=== PATIENT | male | born 2000 | race Caucasian/White ===

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

== ENCOUNTER 2020-06-22 01:11 | Emergency (ER) | payer MEDICAID, SELFPAY ==
[2020-06-22 01:12] VITALS: BP 125/78; PULSE 117; RESP 16; TEMP 36.9; O2SAT 98; BMI 19.5
--- NOTE | 2020-06-22 01:26 | RAD_ITS ---
STUDY: X-RAY CHEST REASON FOR EXAM: Male, 20 years old. Productive cough. TECHNIQUE: Single AP portable view of the chest. COMPARISON: CT scan chest 02/11/2016. FINDINGS: There are no confluent pulmonary infiltrates. There is no demonstrated pleural abnormality. Normal size heart. Normal mediastinum and alyce. Normal visualized aortic arch and descending thoracic aorta. There are no demonstrated acute fractures or destructive bone lesions. There is no demonstrated abnormality of the visualized soft tissue structures of the upper abdomen. RAD/Chest 1 View (Portable) IMPRESSION: Normal x-ray examination of the chest. Electronically Signed: Roman Marshall MD at 2:36 EDT , Service support ,
[2020-06-22 01:57] VITALS: O2SAT 98
--- NOTE | 2020-06-22 01:58 | ED.DCSUM_ITS ---
- ER Visit Summary Date of Service: 06/22/20 Chief Complaint: Cough History of Present Illness: The patient is a 20 M with no primary care physician. He reports he has a cough that began yesterday. Is productive of clear sputum with green at times. He denies any blood in his sputum. He denies any fever or chills. Does report he has nasal congestion. He denies any chest pain or shortness of breath. Patient has no known exposure to COVID. He does have sick contacts as his girlfriend had a sore throat and cough. However she had a negative cover test. He had a couple test approximately 1 week ago that was negative. He has been wearing a mask. He reports he is had similar symptoms with allergies. However, he is taking his Zyrtec without relief. Physical Examination: Vitals: Stable. Afebrile. General: Well-nourished and well-developed. Head: Normocephalic atraumatic. Neck: Supple, no lymphadenopathy. No JVD. Nontender. Cardiovascular: Regular rate and rhythm. No murmurs. Respiratory: No respiratory distress. Clear to auscultation bilaterally. Abdominal: Soft, nontender, nondistended, normal bowel sounds. No guarding, rebound, or peritoneal signs. Back: Nontender. Extremities: Nontender, no edema. Skin: Normal color, no rash. Neurologic: Alert and oriented ?3. Cranial nerves II through XII are intact. Normal strength and sensation. Psych: Normal affect. Test Results: Chest x-ray shows no acute disease. Emergency Department Course and Treatment: Patient is resting comfortably. He refused the COVID-19 test. Treatment Plan: Had prolonged discussion the patient at this time I would continue the cetirizine. He is instructed to use Sudafed during the day and Benadryl at night to help with his congestion. He does understand that this could potentially be COVID-19 and he needs to quarantine until he feels better. He is instructed to follow-up with Dr. Juan Yoder in 10 to 14 days if not improving. Return to the emergency department for any worsening symptoms. Disposition: To home in improved and stable condition. Impression: 1. URI, possible COVID-19 infection. This note was generated with [employer] software. It may contain incorrect words, spelling, and punctuation that were not noted in review of the chart prior to signing ED Disposition - Plan for ED Patient: Instructions: ED Upper Resp Infec No Abx Tx Referrals: Juan Yoder III, MD [STAFF PHYSICIAN] - 10-14 Days if not better
[2020-06-22 02:07] VITALS: BP 128/88; PULSE 91; RESP 15; O2SAT 97
== END 2020-06-22 02:07 | disposition home or self-care (01) ==
LOC: ED 01:43
PROVIDERS: Emergency Provider Emergency Medicine
DX: J06.9 Acute upper respiratory infection, unspecified (principal); Z20.828 Contact with and (suspected) exposure to other viral communicable diseases
CPT/HCPCS: 71045; 99283

== ENCOUNTER 2020-07-05 16:27 | Emergency (ER) | payer MEDICAID, SELFPAY ==
[2020-07-05 16:28] VITALS: BP 118/82; PULSE 89; RESP 16; TEMP 36.6; O2SAT 99; BMI 20.7
--- NOTE | 2020-07-05 16:37 | ED.VIS.GEN ---
History of Present Illness Chief Complaint: Sore Throat Informant: Patient Onset: Yesterday Context: Gradual Onset Timing: Continuous Current Severity: Moderate Maximum Severity: Moderate Narrative: Patient is a 20-year-old male was otherwise healthy the presents to the emergency department sore throat. Patient states his symptoms began yesterday. He states he had a mild tightness in his throat. He states it felt like there was something swollen. States today, he had persistent symptoms. He is still able to eat and drink. He denies any change in voice. He denies any trouble laying flat. Patient was Covid negative recently. Prior similar symptoms: No Recent Illness/Hospitalization: No Past Medical History - Allergies and Home Meds Allergies/Adverse Reactions: Allergies yeast, dried Adverse Reaction (Verified 07/05/20 16:33) Hives SALMON Adverse Reaction (Uncoded 07/05/20 16:33) Hives Primary Care Physician: Care Physician,No Primary [Primary Care Provider] - Prior records reviewed: Yes Past Medical History: None Surgical History: no surgical history Smoking Status: Never smoker Review of Systems General: Denies: Chills, Fever, Sweats Eyes: Denies: Visual changes - bilaterally, Diplopia ENT: Reports: Sore throat. Denies: Rhinorrhea Cardiovascular: Denies: Chest pain, Palpitations Respiratory: Denies: Dyspnea, Cough, Dyspnea on exertion Gastrointestinal: Denies: Abdominal pain, Nausea, Vomiting, Diarrhea, Melena, Hematochezia Genitourinary: Denies: Dysuria, Hematuria, Frequency Musculoskeletal: Denies: Back pain, Extremity Pain Skin: Denies: Rash, Wounds Neurological: Denies: Headache, Weakness, Numbness Physical Exam Vital Signs/Narrative: Vital Signs Temp Pulse Resp BP Pulse Ox 07/05/20 16:28 97.9 F 89 16 118/82 H 99 Inital Vital Signs reviewed: Yes General: Well nourished, Well developed, No Acute Distress Head: Normocephalic, Atraumatic Eyes: Perrl, EOMI ENT: Moist mucous membranes, No rhinorrhea, - - Posterior oropharynx is widely patent. There is evidence of uvulitis. There is no exudate. There is no trismus or stridor. There is no evidence of retropharyngeal or peritonsillar abscess. Neck: Supple, Nontender Cardiovascular: Regular rate, Regular rhythm, No murmurs Respiratory: No distress, CTA bilaterally, Chest nontender Abdomen: Soft, Nontender, Nondistended, Normal bowel sounds Back: Nontender, Normal Inspection Extremities: Nontender, No edema Skin: Normal color, No rash Neurological: Alert, Oriented x3, Cranial nerves II-XII grossly intact, Normal Strength, Normal Sensation Psychological: Normal affect, Normal Mood Diagnostic/Tx/Re-eval - Medical Decision Making The patient presents with sore throat. He does have evidence of uvulitis. There is no exudate or evidence of abscess. I am going to treat the patient with Decadron and amoxicillin. He is comfortable with this plan of care and we discharged home. Impression 1. Uvulitis ED Disposition - Plan for ED Patient: Instructions: ED Pharyngitis Report Pending Prescriptions: Amoxicillin 500 mg PO TID #21 tab Prescription Printed Dexamethasone [Decadron] 4 mg PO BIDCM #6 tab Prescription Printed Referrals: Care Physician,No Primary [Primary Care Provider] -
[2020-07-05] MEDS: dexAMETHasone 10 MG/ML Vial PO.IVFORM (16:42)
== END 2020-07-05 16:52 | disposition home or self-care (01) ==
LOC: ED 16:49
PROVIDERS: Emergency Provider Emergency Medicine
DX: K12.2 Cellulitis and abscess of mouth (principal)
CPT/HCPCS: 99281

== ENCOUNTER 2020-07-07 17:12 | Emergency (ER) | payer MEDICAID, SELFPAY ==
[2020-07-07 17:12] VITALS: BP 110/68; PULSE 86; RESP 18; TEMP 36.3; O2SAT 100; BMI 22.7
--- NOTE | 2020-07-07 18:36 | ED.DCSUM_ITS ---
History of Present Illness Chief Complaint: Sore Throat Detail of Chief Complaint: throat tightness Informant: Patient Onset: Days - 1-2 Context: Gradual Onset Timing: Continuous Quality: tightness Location: throat Current Severity: Moderate Maximum Severity: Moderate Worsened by: nothing Relieved by: nothing Associated Symptoms: soreness and swelling in back of throat are better c/w 2d ago Narrative: Patient was seen here 2 days ago and diagnosed with uvulitis, treated with Decadron and amoxicillin. He states the symptoms that he had been, which were swelling and soreness in the back of his throat are better, but now he feels some tightness lower down like it is hard to take a breath but he does not necessarily feel dyspneic. Denies any cough, fevers, chills, or any other new symptoms. He is swallowing liquids and solids without any difficulty. He denies any noisy breathing. He denies any swelling that he can tell objectively in his extremities or anywhere else. He states that he thinks this is all his anxiety but he wants to make sure that there is nothing else wrong. - Past Medical History (1) Anxiety Status: Chronic Past Medical History - Allergies and Home Meds Allergies/Adverse Reactions: Allergies yeast, dried Adverse Reaction (Verified 07/05/20 16:33) Hives SALMON Adverse Reaction (Uncoded 07/05/20 16:33) Hives Primary Care Physician: Care Physician,No Primary [Primary Care Provider] - Surgical History: no surgical history Smoking Status: Never smoker Review of Systems General: Denies: Chills, Fever, Sweats Eyes: Denies: Visual changes - bilaterally, Diplopia ENT: Reports: - - Throat tightening. See HPI.. Denies: Rhinorrhea, Sore throat Cardiovascular: Denies: Chest pain, Palpitations Respiratory: Denies: Dyspnea, Cough, Dyspnea on exertion Gastrointestinal: Denies: Abdominal pain, Nausea, Vomiting, Diarrhea, Melena, Hematochezia Genitourinary: Denies: Dysuria, Hematuria, Frequency Musculoskeletal: Denies: Back pain, Extremity Pain Skin: Denies: Rash, Wounds Neurological: Denies: Headache, Weakness, Numbness Psych: Reports: Anxiety. Denies: Suicidal thoughts Physical Exam Vital Signs/Narrative: Vital Signs Temp Pulse Resp BP Pulse Ox 07/07/20 17:12 97.3 F L 86 18 110/68 100 Inital Vital Signs reviewed: Yes General: Well nourished, Well developed, No Acute Distress - Well-appearing, conversive in full sentences without difficulty or stridor. Head: Normocephalic, Atraumatic Eyes: Perrl, EOMI ENT: Moist mucous membranes, No rhinorrhea, - - Posterior oropharynx normal exc ept for mildly swollen short uvula. No trismus. No stridor. No tonsillar asymmetry or edema or exudates, airway widely patent. Neck: Supple, Nontender, No lymphadenopathy Respiratory: No distress, CTA bilaterally, Chest nontender Extremities: Nontender, No edema Skin: Normal color, No rash, No Trauma Neurological: Alert, Oriented x3, Cranial nerves II-XII grossly intact, Normal Strength, Normal Sensation, Normal Gait Psychological: Normal affect, Normal Mood Diagnostic/Tx/Re-eval - Medical Decision Making Patient reassured that his exam is normal. He is passing air without any difficulty. He is advised that if he starts having trouble passing solids or liquids, and if symptoms worsen he should come back, but he was already treated with Decadron which may be worsening his anxiety and causing the symptoms. He feels better and is reassured, we discussed these reasons to return. ED Disposition - Plan for ED Patient: Disposition: Home or Assisted Living Diagnosis: Uvulitis, Anxiety Instructions: ED Uvulitis Referrals: Doctor,Your [STAFF PHYSICIAN] - As Needed
[2020-07-07 18:50] VITALS: RESP 17
== END 2020-07-07 18:51 | disposition home or self-care (01) ==
PROVIDERS: Emergency Provider Emergency Medicine
DX: K12.2 Cellulitis and abscess of mouth (principal); F41.9 Anxiety disorder, unspecified
CPT/HCPCS: 99281

== ENCOUNTER 2020-07-18 01:17 | Emergency (ER) | payer MEDICAID, SELFPAY ==
[2020-07-18 01:18] VITALS: BP 133/80; PULSE 100; RESP 18; TEMP 36.3; O2SAT 99; BMI 19.4
--- NOTE | 2020-07-18 01:24 | ED.VIS.GEN ---
History of Present Illness Chief Complaint: Anxiety Informant: Patient Onset: Today Context: Sudden Onset Timing: Continuous Current Severity: Mild Maximum Severity: Moderate Narrative: Patient is a 20-year-old male who presents to the emergency department complaining of anxiety. Patient states he ate. He began to feel like his throat was closing. He had some abdominal cramping and felt like he had to have diarrhea. He states he had similar symptoms before with anxiety. He states he is felt mildly improved. He denies being suicidal or homicidal. He denies any drug use. He states he just felt uncomfortable and wanted to make sure I was safe. Prior similar symptoms: Yes Recent Illness/Hospitalization: No Past Medical History - Allergies and Home Meds Allergies/Adverse Reactions: Allergies yeast, dried Adverse Reaction (Verified 07/18/20 01:24) Hives SALMON Adverse Reaction (Uncoded 07/18/20 01:24) Hives [facility] - Prior records reviewed: Yes Past Medical History: - - Anxiety Surgical History: no surgical history Smoking Status: Never smoker Review of Systems General: Denies: Chills, Fever, Sweats Eyes: Denies: Visual changes - bilaterally, Diplopia ENT: Denies: Rhinorrhea, Sore throat Cardiovascular: Denies: Chest pain, Palpitations Respiratory: Denies: Dyspnea, Cough, Dyspnea on exertion Gastrointestinal: Denies: Abdominal pain, Nausea, Vomiting, Diarrhea, Melena, Hematochezia Genitourinary: Denies: Dysuria, Hematuria, Frequency Musculoskeletal: Denies: Back pain, Extremity Pain Skin: Denies: Rash, Wounds Neurological: Denies: Headache, Weakness, Numbness Psych: Reports: Anxiety Physical Exam Vital Signs/Narrative: Vital Signs Temp Pulse Resp BP Pulse Ox 07/18/20 01:18 97.4 F L 100 18 133/80 H 99 Inital Vital Signs reviewed: Yes General: Well nourished, Well developed, No Acute Distress Head: Normocephalic, Atraumatic Eyes: Perrl, EOMI ENT: Moist mucous membranes, No rhinorrhea Neck: Supple, Nontender Cardiovascular: Regular rate, Regular rhythm, No murmurs Respiratory: No distress, CTA bilaterally, Chest nontender Abdomen: Soft, Nontender, Nondistended, Normal bowel sounds Back: Nontender, Normal Inspection Extremities: Nontender, No edema Skin: Normal color, No rash Neurological: Alert, Oriented x3, Cranial nerves II-XII grossly intact, Normal Strength, Normal Sensation Psychological: Normal affect, Normal Mood Diagnostic/Tx/Re-eval - Medical Decision Making Clinically, the patient appears well. His oropharynx is widely patent. His abdomen is soft and nontender. He does appear to be anxious, but in no distress. I did discuss options with the patient. He states he was comfortable taking something for anxiety. He was ordered 1 mg of Ativan. He is interested in getting follow-up as his anxiety bouts have been more frequent. The patient will be referred to the counseling center. He will be discharged home. Impression 1. Acute stress reaction ED Disposition - Plan for ED Patient: Instructions: ED Stress React Referrals: Counseling,Center [GROUP OF PHYSICIANS] -
[2020-07-18] MEDS: LORazepam 1 MG Tablet PO (01:29)
== END 2020-07-18 01:41 | disposition home or self-care (01) ==
LOC: ED 01:37
PROVIDERS: Emergency Provider Emergency Medicine
DX: F43.0 Acute stress reaction (principal)
CPT/HCPCS: 99283

== ENCOUNTER 2020-08-07 16:15 | Emergency (ER) | payer MEDICAID, SELFPAY ==
[2020-08-07 16:16] VITALS: BP 140/87; PULSE 101; RESP 19; TEMP 36.6; O2SAT 100; BMI 20.7
--- NOTE | 2020-08-07 16:38 | ED.VIS.GEN ---
History of Present Illness Chief Complaint: Sore Throat Narrative: Patient is a 20-year-old male who presents because his throat feels tight. He has actually had multiple visits to the emergency department for similar symptoms. It has been attributed to anxiety. Patient does admit to anxiety and states he is working on this with counseling. He just wanted to be checked to know that he was okay. He otherwise has no complaints. No pain. No difficulty swallowing or fever. Past Medical History - Allergies and Home Meds Allergies/Adverse Reactions: Allergies yeast, dried Adverse Reaction (Verified 08/07/20 16:15) Hives SALMON Adverse Reaction (Uncoded 08/07/20 16:15) Hives Primary Care Physician: Care Physician,No Primary [Primary Care Provider] - Past Medical History: - - Anxiety Surgical History: no surgical history Smoking Status: Never smoker Review of Systems All systems negative except as indicated General: Denies: Fever Cardiovascular: Denies: Chest pain Respiratory: Reports: - - Throat tightness. Denies: Dyspnea Gastrointestinal: Denies: Nausea, Vomiting Musculoskeletal: Denies: Myalgias, Arthralgias Skin: Denies: Rash Neurological: Denies: Headache Physical Exam Vital Signs/Narrative: Vital Signs Temp Pulse Resp BP Pulse Ox 08/07/20 16:16 97.9 F 101 H 19 H 140/87 H 100 Inital Vital Signs reviewed: Yes General: Well nourished Head: Normocephalic Eyes: EOMI ENT: Moist mucous membranes, - - Oropharynx normal examination uvula is midline no tonsillar enlargement clear speech oral airway widely patent no trismus Neck: Supple, - - No lymphadenopathy or soft tissue swelling Cardiovascular: Regular rate Respiratory: No distress, CTA bilaterally, - - No rales rhonchi wheezing or stridor Abdomen: Soft Skin: Normal color Neurological: Alert Psychological: - - Appears mildly anxious Diagnostic/Tx/Re-eval - Medical Decision Making Patient was reassured. He has a normal examination. He has had multiple visits for prior similar symptoms. I do believe this is likely related to anxiety and stress reaction. He was reassured but advised on signs and symptoms to monitor for. Patient was discharged. ED Disposition - Plan for ED Patient: Disposition: Home or Assisted Living Diagnosis: Anxiety Instructions: ED Stress React Referrals: Care Physician,No Primary [Primary Care Provider] -
--- NOTE | 2020-08-07 16:59 | ED.RN ---
pt reports anxiety is resolved. he has seen a counselor for it and is working on coping and next step is mediacation. pt has a followup appt with his counseler.
== END 2020-08-07 17:02 | disposition home or self-care (01) ==
LOC: ED 16:45
PROVIDERS: Emergency Provider Emergency Medicine
DX: F41.9 Anxiety disorder, unspecified (principal)
CPT/HCPCS: 99282

== ENCOUNTER 2020-12-07 23:30 | Emergency (ER) | payer MEDICAID, SELFPAY ==
[2020-12-07 23:32] VITALS: BP 125/81; PULSE 86; RESP 12; TEMP 36; O2SAT 100
[2020-12-08] MEDS: Metoclopramide 10 MG/2 ML Vial 5 MG SC (00:10)
[2020-12-08] MEDS: SUMAtriptan 6 MG/0.5 ML Vial SC (00:10)
--- NOTE | 2020-12-08 00:19 | ED.VIS.HA ---
History of Present Illness Chief Complaint: Headache Informant: Patient Onset: Yesterday - Almost 24 hours ago Context: Gradual, Onset Timing: Continuous Quality: Similar Prior Headaches, Throbbing Location: Right frontal-parietal Current Severity: Moderate Maximum Severity: Moderate Associated Symptoms: Nausea, Blurred Vision - At times. No diplopia., Photophobia. Negative for: Vomiting, Numbness Injury: - - No injury Narrative: This patient has occasional migraine headaches, this 1 is similar, it transiently improved with ibuprofen earlier in the day but has been persistent and did not go away. The only thing that is unusual for him with this headache is that he has been nauseated and felt like he had a upper stomachache. No focal neurologic symptoms, fevers, neck stiffness, confusion. No recent illness otherwise. - Past Medical History (1) Migraine headache Status: Chronic Past Medical History - Allergies and Home Meds Allergies/Adverse Reactions: Allergies yeast, dried Adverse Reaction (Verified 12/07/20 23:30) Hives SALMON Adverse Reaction (Uncoded 12/07/20 23:30) Hives Primary Care Physician: Doctor,Your [STAFF PHYSICIAN] - As Needed Surgical History: no surgical history Smoking Status: Current every day smoker Drugs: None Review of Systems General: Denies: Chills, Fever, Sweats Eyes: Reports: Blurred Vision - bilaterally. Denies: Diplopia ENT: Denies: Bilateral ear pain, Rhinorrhea, Sore throat Cardiovascular: Denies: Chest pain, Palpitations Respiratory: Denies: Dyspnea, Cough, Dyspnea on exertion Gastrointestinal: Reports: Abdominal pain, Nausea. Denies: Vomiting, Diarrhea, Melena, Hematochezia Genitourinary: Denies: Dysuria, Hematuria, Frequency Musculoskeletal: Denies: Back pain, Extremity Pain Skin: Denies: Rash, Wounds Neurological: Reports: Headache. Denies: Weakness, Numbness Physical Exam Vital Signs/Narrative: Vital Signs Temp Pulse Resp BP Pulse Ox 12/07/20 23:32 96.8 F L 86 12 125/81 H 100 Inital Vital Signs reviewed: Yes General: Well nourished, Well developed, - - Well-appearing no distress Head: NC, AT Eyes: Perrl, EOMI, - - Mildly photophobic ENT: Moist mucous membranes, No rhinorrhea Neck: Supple, No Lymphadenopathy, Nontender, No Meningismus Cardiovascular: Regular rate, Regular rhythm, No murmurs Respiratory: No distress, CTA bilaterally, Chest nontender Abdomen: Soft, Nontender, Nondistended, Normal bowel sounds Back: Nontender, Normal Inspection. Negative for: CVA tenderness Extremities: Nontender, No edema Skin: Normal color, No rash, No Trauma Neuro: Alert, Oriented x3, Cranial nerves II-XII grossly intact, Normal Strength, Normal Sensation, Normal Gait Psychological: Normal affect, Normal Mood Diagnostic/Tx/Re-eval - Medical Decision Making Patient initially treated with Imitrex 6 mg subcutaneous in addition to Reglan 5 mg subcutaneous. He did vomit 20 or 30 minutes later so he was additionally given Zofran. On reevaluation, his headache is most completely gone and he feels much much better and would like to go home which I think is reasonable. Consistent with a migraine. ED Disposition - Plan for ED Patient: Disposition: Home or Assisted Living Diagnosis: Migraine headache Instructions: ED, Migraine (Classical) Referrals: Doctor,Your [STAFF PHYSICIAN] - As Needed
--- NOTE | 2020-12-08 00:35 | ED.RN ---
pt askingif his med caused him to vomit and states throwing up. He asked for a sip of water and we discussed another nausea med, under the tongue. Patient agreeable and scanned patient and pills. he then states he does not want to take it at this time and handed back to me
[2020-12-08 01:34] VITALS: BP 124/77; PULSE 71; RESP 16; O2SAT 98
== END 2020-12-08 01:40 | disposition home or self-care (01) ==
PROVIDERS: Emergency Provider Emergency Medicine; PCP Physician Assistant
DX: G43.909 Migraine, unspecified, not intractable, without status migrainosus (principal); F17.200 Nicotine dependence, unspecified, uncomplicated
CPT/HCPCS: 96372; 99282; J3030

== ENCOUNTER 2021-02-21 12:05 | Emergency (ER) | payer MEDICAID, SELFPAY ==
[2021-02-21 12:06] VITALS: BP 122/72; PULSE 109; RESP 16; TEMP 37.4; O2SAT 100; BMI 20.5
--- NOTE | 2021-02-21 12:27 | EX.ED.DYSGE1 ---
HPI History of Present Illness Chief Complaint: Dental Informant: patient Narrative Narrative: Patient is a 20-year-old previously healthy male who presents to the emergency department for left-sided jaw pain. This started yesterday. He denies ever having this before. He denies any hot or cold sensitivities. The pain has been getting worse. He currently describes as severe. It is located on the left side. He developed some swelling along the left jaw. He denies any painful swallowing. No headache or ear pain. No sinus pressure. No neck pain or stiffness. No cough, shortness of breath. No fevers or chills. He has not taken anything for this. Patient states he has not seen a dentist in quite a while. No known aggravating or relieving factors. Patient does smoke/vape. PFSH PFSH Home Medications Cetirizine Hcl [Zyrtec] 10 mg PO DAILY #14 tablet 01/18/18 [Rx Last Taken Unknown] naproxen [Naprosyn] 500 mg PO BID PRN #20 tab 02/21/21 [Rx Last Taken Unknown] penicillin V potassium 500 mg PO 4X/DAY 7 Days #28 tab 02/21/21 [Rx Last Taken Unknown] Allergy/AdvReac Type Severity Reaction Status Date / Time yeast, dried AdvReac Hives Verified 02/21/21 12:05 SALMON AdvReac Hives Uncoded 02/21/21 12:05 Social History Smoking Status: Current every day smoker ROS ROS ED Constitutional Constitutional ED: Denies chills or fever(s) Eyes Eyes: Denies change in vision ENT ENT ED: Reports dental pain; Denies change in voice, epistaxis, neck pain or rhinorrhea Cardiovascular Cardiovascular: Denies chest pain or palpitations Respiratory/Chest Respiratory/Chest: Denies cough, dyspnea or dyspnea on exertion Gastrointestinal Gastrointestinal: Denies abdominal pain, diarrhea, nausea or vomiting Musculoskeletal Musculoskeletal: Denies back pain or neck pain Integumentary Denies rash Neurologic Neurologic: Denies dizziness, headache(s) or weakness EXAM Physical Exam Const Vital Signs: 02/21/21 12:06 Temperature 99.3 F H Temperature Source Temporal Pulse Rate 109 H Respiratory Rate 16 Blood Pressure 122/72 H Blood Pressure Mean 88 Pulse Ox 100 Oxygen Delivery Method Room Air Positive well nourished and well developed General Appearance ED: well developed and NAD HEENT Reports normocephalic, head/scalp atraumatic and moist mucous membranes HEENT Narrative: Swelling along the left lateral mandible. Clear oropharynx. No appreciable tonsillar abscess. Uvula midline. No oral lesions. There are dental caries along the left side. No fluctuating abscess palpable. There is tenderness. No overlying skin changes. Eyes PERRL and EOMs intact bilaterally Neck no lymphadenopathy and supple General: Negative for tenderness Resp normal respiratory effort and clear to auscultation bilaterally Auscultation: Negative for rales, rhonchi or wheezes Cardio regular rate, regular rhythm and no murmurs Extremity normal to inspection General Extremety ED: Negative for edema or tenderness General Extremity: Negative for edema Neuro oriented x3, CN's II-XII intact bilaterally and no sensory deficits noted Sensorium / Orientation: alert Motor Exam: strength 5/5 throughout Psych mental status grossly normal Skin no rashes or lesions noted MDM MDM MDM Narrative Medical decision making narrative: Patient presents to the ED for dental pain. On physical exam he does have dental caries. Likely has dental abscess. Will treat with penicillin. Return precautions are reviewed with him including developing systemic symptoms, difficulty swallowing or shortness of breath. He understands and is agreeable to plan. He otherwise is to follow-up with his dentist. All questions were answered. Discharge Plan Triage Chief Complaint: Dental ED Provider: Tyrell Mckenna Dx/Rx/DC Orders Clinical Impression: Dental abscess, Pain, dental Instructions: Dental Abscess Prescriptions: New penicillin V potassium 500 mg tablet 500 mg PO 4X/DAY 7 Days Qty: 28 RF: 0 naproxen [Naprosyn] 500 mg tablet 500 mg PO BID PRN (Reason: pain) Qty: 20 RF: 0 No Action Cetirizine Hcl [Zyrtec] 10 MG tablet 10 mg PO DAILY Qty: 14 RF: 0 Primary Care Provider: Heather Garcia Referrals: Heather Garcia PA [Primary Care Provider] - 1 Week Activity Restrictions/Additional Instructions: Please follow-up with your dentist this coming week. Disposition Disposition: Home, self care
== END 2021-02-21 12:48 | disposition home or self-care (01) ==
PROVIDERS: Emergency Provider Emergency Medicine; PCP Physician Assistant
DX: K04.7 Periapical abscess without sinus (principal); F17.200 Nicotine dependence, unspecified, uncomplicated
CPT/HCPCS: 99281; 99282

== ENCOUNTER 2023-03-29 05:27 | Emergency (ER) | payer MEDICAID, SELFPAY ==
[2023-03-29 05:28] VITALS: BP 165/90; PULSE 79; RESP 18; TEMP 36.2; O2SAT 98; BMI 25.2
--- NOTE | 2023-03-29 05:44 | ED.VIS.DENTA ---
HPI History of Present Illness Chief Complaint: Dental Informant: patient Narrative Narrative: Patient states he had several root canals yesterday. Tonight, one of the fillings came out and that tooth is really hurting. No bleeding, swelling, discharge, bleeding. It is a right maxillary canine. PFSH PFSH Medical History no medical history no medical history Home Medications Cetirizine Hcl [Zyrtec] 10 mg PO DAILY ##14 01/18/18 [Rx Last Taken Unknown] naproxen 500 mg tablet (Naprosyn) 500 mg PO BID PRN pain #20 tabs 02/21/21 [Rx Last Taken Unknown] Allergy/AdvReac Type Severity Reaction Status Date / Time salmon oil Allergy Hives Verified 03/29/23 05:32 yeast, dried AdvReac Hives Verified 03/29/23 05:32 Social History Smoking Status: Current every day smoker tobacco type: cigarettes ROS ROS ED Constitutional Constitutional ED: Denies chills or fever(s) Eyes Eyes: Denies change in vision or double vision ENT ENT ED: Reports dental pain; Denies sinus pain or throat swelling Cardiovascular Cardiovascular: Denies chest pain or palpitations Respiratory/Chest Respiratory/Chest: Denies cough or dyspnea Integumentary Denies abscess or rash Neurologic Neurologic: Denies headache(s), paresthesias or weakness EXAM Physical Exam Const Vital Signs: 03/29/23 05:28 Temperature 97.1 F L Temperature Source Temporal Pulse Rate 79 Respiratory Rate 18 Blood Pressure 165/90 H Blood Pressure Mean 115 Pulse Ox 98 Oxygen Delivery Method Room Air Positive well nourished and well developed General Appearance ED: well developed and NAD HEENT HEENT Narrative: Tooth #6, the pulp is exposed there is no drop of blood or bleeding, there is no gingival abscess, it is mildly tender no subluxation, no abscess, no external facial swelling or asymmetry. No cellulitis. Face and Sinus: sinuses nontender Throat: posterior oropharynx normal Eyes PERRL and EOMs intact bilaterally Neck no lymphadenopathy and supple Resp normal respiratory effort Neuro oriented x3 and CN's II-XII intact bilaterally Sensorium / Orientation: alert Gait (Neuro): normal gait Psych mental status grossly normal and thought process normal Skin no rashes or lesions noted and no wounds MDM MDM MDM Narrative Medical decision making narrative: I sprayed Cetacaine spray on the tooth which did help to partially anesthetize it, followed by temporary Cavit filling which I placed and molded, gave the patient the rest of the tube to use as needed, follow-up with dentistry advised, he is feeling much better at discharge. Discharge Plan Triage Chief Complaint: Dental ED Provider: Fly Lopez Dx/Rx/DC Orders Clinical Impression: Pain, dental Instructions: ED Dental Cavity Prescriptions: No Action Cetirizine Hcl [Zyrtec] 10 MG tablet 10 mg PO DAILY Qty: 14 0RF naproxen [Naprosyn] 500 mg tablet 500 mg PO BID PRN (Reason: pain) Qty: 20 0RF Hold Instructions: MD Ordered Primary Care Provider: Heather Garcia Referrals: Heather Garcia PA [Primary Care Provider] - Dentist,Your [STAFF PHYSICIAN] - As soon as possible Disposition Disposition: Home, Self Care
[2023-03-29 05:49] VITALS: BP 160/88; PULSE 79; RESP 18
== END 2023-03-29 05:50 | disposition home or self-care (01) ==
LOC: ED 05:47
PROVIDERS: Emergency Provider Emergency Medicine; PCP Family Medicine; Visit Provider Emergency Medicine
DX: K08.89 Other specified disorders of teeth and supporting structures (principal); F17.210 Nicotine dependence, cigarettes, uncomplicated
CPT/HCPCS: 64999; 99282